=== PATIENT | male | born 1955 | race Caucasian/White ===

== ENCOUNTER 2025-06-15 15:51 | Outpatient (REF) | payer OTHER, SELFPAY ==
--- OUTSIDE RECORDS SUMMARY | 2025-06-01 14:20 | XMS_ITS | Encounter Summary ---
Author Organization [employer] Address [address], [place] [address] Care Team Providers Care Respiratory Care Instructor Name Role Phone No Primary/Referring, Phy Primary Care Provider Unavailable Reason for Visit * Reason Comments Refill Labs Needed Ppi monitoring Encounter Details Date Type Department Care Team (Latest Contact Info) Description 06/01/2025 2:20 PM CDT Office Visit Well at Work [facility] [address] [place] [address] Latasha Bose APRN, TERRA COTTA ROOFER HELPER [address] [place] [address] Encounter for medication refill (Primary Dx); Long-term current use of proton pump inhibitor therapy; Gastroesophageal reflux disease, unspecified whether esophagitis present; Hyperlipidemia, unspecified hyperlipidemia type (HRC) Social History Tobacco Use Types Packs/Day Years Used Date Smoking Tobacco: Never Passive Smoke Exposure: Never Smokeless Tobacco: Never Alcohol Use Standard Drinks/Week Comments Yes 0 (1 standard drink = 0.6 oz pur e alcohol) Occas PHQ-2 Answer Date Recorded PHQ-2 Score 0 08/12/2024 Sex and Gender Information Value Date Recorded Sex Assigned at Not on file Legal Sex Male 3:44 AM CDT Gender Identity Not on file Sexual Orientation Not on file documented as of this encounter Progress Notes * Latasha Bose APRN, SHANON - 06/01/2025 2:20 PM CDT Chief Complaint: Chief Complaint Patient presents with Refill Labs Needed Ppi monitoring Subjective HPI: Ortiz Quintana is a 69 y.o. old male who [facility] to [facility] for refill of medication from clinic stock. Pt has been taking their medications regularly and as prescribed. Denies any questions or concerns about the medication(s); denies any adverse reactions to the medications. Objective Physical Exam: There were no vitals taken for this visit. General: Well appearing. No acute distress. Pulm: Breathing easily on room air. Skin: No rashes on exposed areas of skin. Neuro: Alert. Normal speech. Assessment /PLAN 1. Encounter for medication refill 2. Long-term current use of proton pump inhibitor therapy - Magnesium; Future - Magnesium 3. Gastroesophageal reflux disease, unspecified whether esophagitis present - pantoprazole DR (PROTONIX) 20 MG tablet; Take 2 Tablets (40 mg) by mouth daily. Dispense: 180 Tablet; Refill: 0 4. Hyperlipidemia, unspecified hyperlipidemia type (HRC) - rosuvastatin (CRESTOR) 10 MG tablet; Take 2 Tablets (20 mg) by mouth daily. Dispense: 180 Tablet;Refill: 0 A 90 day supply of medications listed above were dispensed from clinic supply today. Serum Magnesium collected. Patient will review test results on OPS. Pt will return to the clinic for recheck/refill before current medication(s) are gone or sooner if needed. Follow up scheduled today. Patient verbalized understanding and agrees with plan. Latasha Bose APRN, SHANON documented in this encounter Plan of Treatment Upcoming Encounters Date Type Department Care Team (Late st Contact Info) Description 08/24/2025 2:20 PM SET UP OPERATOR Appointment Well at Work [facility] [address] [place], [place] [id number] Latasha Bose APRN, SHANON [address] [place] [address] documented as of this encounter Procedures Procedure Name Priority Date/Time Associated Diagnosis Comments MAGNESIUM Routine 06/01/2025 2:27 PM CDT Long-term current use of proton pump inhibitor therapy documented in this encounter Results * Magnesium (06/01/2025 2:27 PM CDT) Magnesium 2.1 1.6 - 2.6 mg/dL 06/01/2025 8:57 PM CDT [facility] Blood Venipuncture / Unknown 06/01/2025 2:27 PM CDT 06/01/2025 4:27 PM CDT us Latasha Bose STONE LAYER, TERRA COTTA ROOFER HELPER LAB_1 Final Resul t [facility] CLIA: [id number] [address] [place] [address] documented in this encounter Visit Diagnoses Diagnosis Encounter for medication refill- Primary Issue of repeat prescriptions Long-term current use of proton pump inhibitor therapy Gastroesophageal reflux disease, unspecified whether esophagitis present Hyperlipidemia, unspecified hyperlipidemia type (HRC) documented in this encounter Care Teams Respiratory Care Instructor Relationship Specialty Start Date End Date No Primary/Referring, Phy PCP - General 01/13/18 documented as of this encounter
--- OUTSIDE RECORDS SUMMARY | 2025-06-16 00:16 | XMS_ITS | Encounter Summary ---
Author Organization [employer] Address [address], [place] [address] Care Team Providers Care Elevating Grader Operator Name Role Phone No Primary/Referring, Phy Primary Care Provider Unavailable Encounter Details Date Type Department Care Team (Late Contact Info) Description 04/11/2025 Results Follow-Up [facility] [address] [place], [place] [phone] Gina Bryant PA-C [address] [place] [id number] Social History Tobacco Use Types Packs/Day Years [...] on file documented as of this encounter Plan of Treatment Upcoming Encounters Date Type Department Care Team (Late Contact Info) Description 08/24/2025 2:20 PM STRIPPING AND BOOKING MACHINE OPERATOR Appointment Well at Work Met [facility] [address] [place], [place] [address] Latasha Bose R, LANGUAGE INSTRUCTOR, LABORATORY VETERINARIAN [address], [place] [address] documented as of this encounter Visit Diagnoses Not on filedocumented in this encounter Care Teams Elevating Grader Operator Relationship Specialty Start Date End Date No Primary/Referring, Phy PCP - General 01/13/18 documented as of this encounter
--- OUTSIDE RECORDS SUMMARY | 2025-06-16 00:16 | XMS_ITS | Clinical Summary ---
Author Organization [facility] Address [address] [place] [address] Care Team Providers Care Security Software Engineer Name Role Phone No Primary/Referring, Phy Primary Care Provider Unavailable Source Comments You are receiving this document as you are listed as the primary care provider,follow-up provider, or the patient has been referred to you for consultation.This is in compliance with the Medicare and[facility] EHR Incentive Program,which states Providers who transition their patient to another setting of careor provider of care or refers their patient to another provider of care shouldprovide summary care record for each transition of care or referral. [employer] Allergies No known active allergies Medications Multiple Vitamins-Minerals (CENTRUM SILVER) Take by mouth. 9 Active ibuprofen (MOTRIN) 600 MG tabletIndications: Encounter for medication refill,S/P rotator cuff surgery Take 1 Tablet by mouth every 8 hours as needed for Pain. Take with food. 30 Tablet 1 Active Calcium Citrate-Vitamin D (CITRACAL + D OR) Ac tive Probiotic Product (PROBIOTIC DAILY OR) Active cetirizine (ZYRTEC) 10 MG tabletIndications: Nasal congestion Take 1 Tablet (10 mg) by mouth daily. 90 Tablet 1 4 Active Meloxicam (MOBIC) 15 MG tabletIndications: Pain of right heel Take 1 Tablet (15 mg) by mouth daily. 45 Tablet 5 4 Active MAGNESIUM GLYCINATE OR Take 400 mg by mouth daily at bedtime. Active levothyroxine (SYNTHROID) 137 MCG tabletIndications: Hypothyroidism, unspecified type (HRC) Take 1 Tablet (137 mcg) by mouth every morning. Wait 30-60 min before eating. 90 Tablet 1 5 04/26/[address] (PROTONIX) 20 MG tabletIndications: Gastroesophageal reflux disease, unspecified whether esophagitis present Take 2 Tablets (40 mg) by mouth daily. 180 Tablet 5 Active rosuvastatin (CRESTOR) 10 MG tabletIndications: Hyperlipidemia, unspecified hyperlipidemia type (HRC) Take 2 Tablets (20 mg) by mouth daily. 180 Tablet 5 06/01/20 26 Active rosuvastatin (CRESTOR) 10 MG tabletIndications: Hyperlipidemia, unspecified hyperlipidemia type (HRC),Encounter for medication refill Take 2 Tablets (20 mg) by mouth daily. 180 Tablet 5 06/01/20 25 Discontin ued(*Med change OR same med OR reorder, new dose/dire ctions) pantoprazole DR (PROTONIX) 20 MG tabletIndications: Gastroesophageal reflux disease, unspecified whether esophagitis present Take 2 Tablets (40 mg) by mouth daily for 45 days. 90 Tablet 5 06/01/20 25 Discontin ued(*Med change OR same med OR reorder, new dose/dire ctions) Active Problems Problem Noted Date Diagnosed Date High prostate specific antigen (PSA) 01/04/2022 History of prostate cancer 06/13/2021 Angiodysplasia of colon 03/27/2020 History of colonic polyps 03/23/2020 Primary malignant neoplasm of prostate 4 GERD (gastroesophageal reflux disease) 1 Hypothyroidism 01/02/2009 Resolved Problems Problem Noted Date Diagnosed Date Resolved Date Chronic shoulder pain 03/25/20182020 Encounters Date Type Department Care Team Description 06/02/2025 Results Follow-Up Well at Work Met [facility] [address] [place] [address] Gina Bryant PA-C 06/01/2025 2:20 PM CDT Office Visit Well at Work Met [facility] [address] [place] [address] Latasha Bose APRN, EMT I/99 Encounter for medication refill (Primary Dx); Long-term current use of proton pump inhibitor therapy; Gastroesophageal reflux disease, unspecified whether esophagitis present; Hyperlipidemia, unspecified hyperlipidemia type (HRC) 04/26/2025 10:20 AM CDT Office Visit Well at Work [facility] [address] [place] [address] Latasha Bose APRN, EMT I/99 Encounter for medication refill (Primary Dx); Gastroesophageal reflux disease, unspecified whether esophagitis present; Hypothyroidism, unspecified type (HRC) 04/11/2025 Results Follow-Up Well at Work [facility] [address] [place] [address] Gina Bryant PA-C 04/07/2025 9:40 AM CDT Office Visit Well at Work [facility] [address] [place] [address] Latasha Bose, RHONDA, EMT I/99 Hypothyroidism, unspecified type (HRC) (Primary Dx); Primary malignant neoplasm of prostate (HRC) from Last 3 Months Immunizations Immunization Administration Dates Next Due Adult RSV Abrysvo 08/25/2023 Flu Vac (3+ yrs) 07/28/2013, 2,08/09/2011,2009,08/01/2007,09/07/2004 Flu Vac Preserv Free (3+yrs) 07/04/2016,06/15/20 15 [id number] 01/09/2010 HepB Adult (Engerix-B, 20+ y rs, 3 dose series) 11/22/2008,05/16/2008,04/15/2008 Influenza (Flucelvax), Prese rv Free QIV 07/01/2017 Influenza [id number] 01/09/2010 Influenza IIV3 (Trivalent) F luzone Highdose, 65+ Yrs (78179) 07/15/2019 Influenza IIV4 (Quadrivalent ) 0.5mL (67324) 07/30/2018,07/04/2016,01/09/2010 Influenza IIV4 (Quadrivalent ) Fluad, 65+ Yrs 07/02/2023,07/02/2022,09/06/2021,2019 Moderna Monovalent 12+ 05/31/2022,2020,12/15/2020,2020 PCV13 (Prevnar) 07/16/2019 PCV20 (Gyjlpfw61) 07/12/2023 PPSV23 (Pneumovax) 10/03/2020 Td (7+ yrs) 04/13/2020 Tdap 01/09/2010 Zoster (Zostavax) 09/21/2015 Zoster RZV (Shingrix) 10/12/2019,07/29/2019 Family History Medical History Relation Name Comments Myocardial Infarction Father Dementia Mother Diabetes, Type II Mother Hypertension Mother Cancer, Other Brother Bone marrow Relation Name Status Comments Father (Age 73) of [place] Mother (Age 83) Brother Social History Tobacco Use Types Packs/Day Years Used Date Smoking Tobacco: Never Passive Smoke Exposure: Never Smokeless Tobacco: Never Tobacco Cessation:Counseling Given: Not Answered Alcohol Use Standard Drinks/Week Comments Yes 0 (1 standard drink = 0.6 oz pur e alcohol) Occas PHQ-2 Answer Date Recorded PHQ-2 Score 0 08/12/2024 Sex and Gender Information Value Date Recorded Sex Assigned at Not on file Legal Sex Male 3:44 AM CDT Gender Identity Not on file Sexual Orientation Not on file Last Filed Vital Signs Vital Sign Reading Time Taken Comments Blood Pressure 118/84 07/06/2024 11:42 AM CDT Pulse 56 07/06/2024 11:42 AM CDT Temperature 37.1 C (98.8 F) 04/02/2024 11:36 AM CDT Respiratory Rate 16 04/02/2024 11:36 AM CDT Oxygen Saturation 97% 04/12/2024 7:27 AM CDT Inhaled Oxygen Concentration - - Weight 86 kg (189 lb 9.6 oz) 04/13/2020 4:25 PM CDT Height 172.7 cm (5' 8) 04/13/2020 4:25 PM CDT Body Mass Index 28.83 04/13/2020 4:25 PM CDT Plan of Treatment Upcoming Encounters Date Type Department Care Team (Late st Contact Info) Description 08/24/2025 2:20 PM CHURCH SECRETARY Appointment Well at Work [facility] [address] [place] [address] Juice, Latasha R, FASHION MARKETER, EMT I/[address] [place] [address] Health Maintenance Due Date Last Done Comments Adult Preventive Visit 1973 Colonoscopy 03/23/2025 03/23/2020 (Comp leted), 10/31/2014 (Completed), 05/22/2007 COVID-19 Vaccine ( season) 2025 07/07/2024, 05/31/2022, 08/23/2021, Additional history exists Influenza Vaccine (#1) 2025 , 07/02/2023, 07/02/2022, Additional history exists Cholesterol 11/18/2029 11/18/2024, 10/2023, 03/20/2023, Additional history exists DTaP/Tdap/Td Vaccine (3 - Tdap) 04/13/2030 04/13/2020, 01/09/2010 HepB Vaccine Completed 11/22/2008, 05/06, 04/15/2008 Hep C Screening (Preventive Services) Completed 08/21/2015 (Completed) Zoster/Shingles Vaccine Completed 10/12/19, 07/29/2019, 09/21/2015 Pneumococcal Vaccine 50+ Yrs Completed 07/12/2023, 10/03/2020, 07/16/2019 RSV Vaccine Completed 08/25/2023 PSA Screening Discussion Discontinued 025, 04/04/2025, 10/04/2024, Additional history exists HepA Vaccine Aged Out No longer eligi ble based on patient's age to complete this topic Hib Vaccine Aged Out No longer eligi ble based on patient's age to complete this topic MCV4 Vaccine Aged Out No longer eligi ble based on patient's age to complete this topic Meningococcal B Vaccine Aged Out No l onger eligible based on patient's age to complete this topic Procedures Procedure Name Priority Date/Time Associated Diagnosis Comments MAGNESIUM Routine 06/01/2025 2:27 PM CDT Long-term current use of proton pump inhibitor therapy PROSTATIC SPECIFIC ANTIGEN(SCREEN) Routine 04/07/2025 9:45 AM CDT Primary malignant neoplasm of prostate (HRC) TSH, SENSITIVE (WITH REFLEX) Routine 04/07/2025 9:45 AM CDT Hypothyroidism, unspecified type (HRC) LIPID PANEL & DIRECT LDL (IF NEEDED) Routine 11/18/2024 2:23 PM CHURCH SECRETARY Routine adult health maintenance from Last 3 Months or Most Recently Relevant to Health Maintenance Results * Magnesium (06/01/2025 2:27 PM CDT) Magnesium 2.1 1.6 - 2.6 mg/dL 06/01/2025 8:57 PM CDT [facility] Blood Venipuncture / Unknown 06/01/2025 2:27 PM CDT 06/01/2025 4:27 PM CDT us Latasha Bose APRN, EMT I/99 LAB_1 Final Resul t [facility] CLIA: [id number] [address] [place] [address] * Prostatic Specific Antigen (Screen) (04/07/2025 9:45 AM CDT) Prostatic Specific Antigen 0.2 <=6.5 ng/mL 04/07/2025 6:46 PM CDT [facility] Comment:When the PSA value i s below the age-specific reference value but within 0.5 ng/mL, consider referral to urology. Blood Venipuncture / Unknown 04/07/2025 9:45 AM CDT 04/07/2025 9:45 AM CDT Narrative [facility] - 04/07/2025 6:46 PM CDT The Santiago PSA Chemiluminescent immunoassay is used. Results obtained with different test methods or kits cannot be used interchangeably. us Latasha R Juice FASHION MARKETER, EMT I/99 LAB_1 Final Resul t Performing Organization Address [facility] Co de Phone Number [facility] [address] * TSH with Free T4 (if TSH Abnormal) (04/07/2025 9:45 AM CDT) TSH, Reflex 0.74 0.30 - 4.50 uIU/mL 04/07/2025 6:46 PM CDT [facility] Blood Venipuncture / Unknown 04/07/2025 9:45 AM CDT 04/07/2025 9:45 AM CDT Latasha Bose APRN, SHANON LAB_1 Final Resul t Performing Organization Address [facility] de Phone Number [facility] [address] * Lipid Panel and Direct LDL(If Needed) (11/18/2024 2:23 PM CHURCH SECRETARY) Cholesterol 130 0 - 199 mg/dL 11/18/2024 6:36 PM CHURCH SECRETARY [facility] Triglyceride 96 <=149 mg/dL 11/18/2024 6:36 PM CHURCH SECRETARY [facility] HDL Cholesterol 45 >=40 mg/dL 11/18/2024 6:36 PM CHURCH SECRETARY [facility] LDL, Calculated 66 <130 mg/dL 11/18/2024 6:36 PM CHURCH SECRETARY [facility] Non HDL Chol, Calculated 85 <=159 mg/dL 11/18/2024 6:36 PM CHURCH SECRETARY [facility] Cholesterol/HDL Ratio 2.9 <=5.0 11/18/2024 6:36 PM CHURCH SECRETARY [facility] Hours Fasting 16.0 8 - 12 Hours 11/18/2024 6:36 PM [facility] Blood Venipuncture / Unknown 11/18/2024 2:23 PM CHURCH SECRETARY 11/18/2024 2:23 PM CHURCH SECRETARY Katalina Woods PA-C LAB_1 Final Result [facility] [address] [place] [address], [facility] from Last 3 Months or Most Recently Relevant to Health Maintenance Insurance [employer] SELF INSURED MEDICARE PART A SELF INSURED Care Teams Security Software Engineer Relationship Specialty Start Date End Date No Primary/Referring, Phy PCP - General 01/13/18
--- OUTSIDE RECORDS SUMMARY | 2025-06-16 00:16 | XMS_ITS | Clinical Summary ---
Author Organization [facility] Address [address] [place] [address] Care Team Providers Care Director Of Speech Pathology Name Role Phone Smith Starr MD Unavailable [phone] [facility], [employer] [facility] Unavailable [facility], [facility] Provide r Allergies No known active allergies Medications CENTRUM SILVER TAB take 1 tablet by oral route once daily 0 11/21/19 09 Active ibuprofen (ADVIL; MOTRIN) 600 mg tabletIndications: Routine general medical examination at a health care facility Take 1 tablet by mouth every 6 hours if needed. Maximum of 3200 mg in 24 hours. 180 tablet 1 01/09/20 18 Active Lactobacillus acidophilus (PROBIOTIC ORAL) Take 1 Tablet by mouth once daily if needed (with lactose containing food/beverages ). Active calcium citrate/vitamin D3 (CITRACAL + D ORAL) Take 1 Tablet by mouth once daily. Active vit C-vit T-cbbypx-wqcntkaf- omega (Ocuvite Adult 50 Plus) 250-5-1 mg Take 1 Capsule by mouth once daily. 0 07/04/20 21 Active pantoprazole (PROTONIX) 20 mg tablet Take 2 Tablets by mouth once daily. 05/22/20 21 Active levothyroxine (SYNTHROID) 125 mcg tablet Take 1 Tablet (125 mcg) by mouth before breakfast. 09/25/20 23 Active meloxicam 15 mg tablet Take 1 Tablet by mouth once daily. as needed 05/25/20 25 Active cetirizine (ZYRTEC) 10 mg tablet Take 10 mg by mouth once daily. 04/12/20 24 Active rosuvastatin (CRESTOR) 20 mg tabletIndications: Coronary artery calcification,Hype rlipidemia, unspecified hyperlipidemia type Take 1 Tablet (20 mg) by mouth at bedtime. 90 Tablet 3 06/09/20 25 Active cholecalciferol, Vitamin D3, 2,000 unit tablet Take 2,000 units by mouth once daily. 025 Discontin ued(*Domi ent states no longer taking) rosuvastatin (CRESTOR) 20 mg tabletIndications: Coronary artery calcification,Hype rlipidemia, unspecified hyperlipidemia type Take 1 Tablet (20 mg) by mouth at bedtime. 90 Tablet 3 09/25/20 23 025 Discontin ued(Reord er (E-cancel not sent)) Active Problems Problem Noted Date Diagnosed Date History of prostate cancer 06/13/2021 Hyponatremia 06/13/2021 Cellulitis of right groin 06/13/2021 GERD (gastroesophageal reflux disease) 1 Unspecified hypothyroidism 01/02/2009 Encounters Date Type Department Care Team Description 06/09/2025 2:30 PM CDT Office Visit [address] [place] [address] Geovanna Love MD CV General Cardiology Est (Yearly follow up. No symptoms or concerns.) 06/09/2025 Travel from Last 3 Months Immunizations Immunization Administration Dates Next Due Influenza A (H1N1), Inactivated (Age >=3 Years) 01/09/2010 Influenza, IIV3 (Age >=3 years) 08/18/2013,08/01 Influenza, IIV4 07/04/2016 Tdap 01/09/2010 Zoster (Zostavax-ZVL, live) 09/22/2015 Family History Medical History Relation Name Comments Cancer Brother 2 bone marrow can cer Diabetes Father Hypertension Mother Anesthesia Problem No Family History Cancer-breast No Family History Cancer-ovarian No Family History Relation Name Status Comments Brother 1 Alive x3 Brother 2 Father (Age 73) Mother (Age 83) Sister Alive Social History Tobacco Use Types Packs/Day Years Used Date Smoking Tobacco: Never Smokeless Tobacco: Never Alcohol Use Standard Drinks/Week Comments Yes 0 (1 standard drink = 0.6 oz pur e alcohol) Rare PHQ-2 Answer Date Recorded PHQ-2 Score 0 12/07/2018 Social Connections Answer Date Recorded Frequency of Communication with Friends and Fami ly Not on file 10/06/2021 Financial Resource Strain Answer Date R ecorded Difficulty of Paying Living Expenses Not on file 10/06/2021 Difficulty of Paying Living Expenses Not on file 10/06/2021 Sex and Gender Information Value Date Recorded Sex Assigned at Not on file Legal 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 Gender Identity Not on file Sexual Orientation Not on file 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 file Not on file Not on file Obstetrics History Last Filed Vital Signs Vital Sign Reading Time Taken Comments Blood Pressure 116/74 06/09/2025 2:48 PM CDT Pulse 59 06/09/2025 2:48 PM CDT Temperature 37.4 C (99.3 F) 06/27/2022 7:27 PM CDT Respiratory Rate 16 06/27/2022 7:27 PM CDT Oxygen Saturation 97% 06/09/2025 2:48 PM CDT Inhaled Oxygen Concentration - - Weight 87.5 kg (193 lb) 06/09/2025 2:48 PM CDT Height 172.7 cm (5' 8) 06/09/2025 2:48 PM CDT Body Mass Index 29.35 06/09/2025 2:48 PM CDT Plan of Treatment Health Maintenance Due Date Last Done Comments Pneumococcal series for age 50+ (1 of 2 - PCV) 1972 RSV vaccine for adults or (1 - Risk 60-74 years 1-dose series) 2013 Zoster (shingles) series for age 50+ (2 of 3) 11/17/2015 09/22/2015 Depression screening for age 12+ 01/08/2019 01/08/2018, 12/13/2016 Tetanus booster 01/10/2020 01/09/2010 Lipids for age 45-75 01/08/2023 01/08/2018, 12/13/2016, 08/21/2015, Additional history exists COVID-19 vaccine series ( season) 2025 05/31/2022, 08/23/2021, 12/15/2020 Influenza Vaccine (#1) 2025 6, 08/18/2013, 08/01/2007 BMI (ht and wt on same day) for age 18+ 06/09/2026 06/09/2025, 09/25/2023, 06/27/2022, Additional history exists Colonoscopy through age 75 03/23/203003/23, 10/31/2014, 05/22/2007, Additional history exists Hepatitis C screening for age 18-79 Completed 08/21/2015 Hepatitis B series for 19+ Aged Out N o longer eligible based on patient's age to complete this topic Procedures Procedure Name Priority Date/Time Associated Diagnosis Comments SCAN-COLONOSCOPY 03/23/2020 8:30 AM CDT LIPID PANEL W REFLEX MEASURED LDL Routine 01/08/2018 12:00 PM CDT Routine general medical examination at a health care facility ANTI HCV Routine 08/21/2015 4:07 PM TERMINAL SYSTEM OPERATOR Physical exam from Last 3 Months or Most Recently Relevant to Health Maintenance Results * SCAN-COLONOSCOPY (03/23/2020 8:30 AM CDT) Narrative Procedure Note José Miguel Chiang MD - 03/23/2020 7:54 AM CDT [facility] [address] [place] [address], [address], [place] [address] Patient Name: Frank Quintana Gender: Male Exam Date: 03/23/2020 Visit Number: [id number] Age: 64 Years 6 Months Date of : 1955 Attending MD: José Miguel Chiang MD Medical Record#: [id number] ----- Procedure: Colonoscopy Indications: Rectal bleeding Follow up adenomatous polyp(s) Referring MD: Rupesh Perez MD Primary MD: MD Aguila Primary Medications: Admitting Medications: 0.9% Normal Saline at TKO Intra Procedure Medications: Patient received monitored anesthesia care. Complications: No immediate complications Procedure: An examination of the heart and lungs was performed and found to be withinacceptable limits. The patient was therefore deemed a reasonablecandidate for endoscopy and monitored anesthesia care. The risks and benefits of the procedure were explained to the patient.After obtaining informed consent, the patient received monitoredanesthesia care and I passed the scope without difficulty via the rectum to the cecum. The appendiceal orificeand ic valve were identified. The scope was retroflexed during theexamination The quality of the prep was good (Miralax/Gatorade/2 tabletsBisacodyl/Magnesium Citrate). This was a complete examination throughout the entire colon. Findings: Angioectasia. Multiple angioectasias in the rectum, consistent withradiation related proctitis. Maneuver - APC. Remainder of the exam is normal. Impression: Radiation proctitis Personal history of colonic polyps Exam otherwise normal Plan: Repeat colonoscopy in 5 years. We will attempt to contact you at appropriate intervals via [place]. mail. Wemay not be able to find you or contact you at that time, therefore youshould know that the responsibility for following our recommendation restswith you. If you don't hear from us at the time your procedure is due,please contact our office to schedule an appointment. If your contactinformation should change, please contact our office so that we can updateyour records. Electronically signed by: José Miguel Chiang MD 03/23/2020 Medications: Medication Dose Sig Description PRN Status PRN Reason Comments Aspirin Low Dose 81 mg Tab, Delayed Release 81 mg Take one tablet by mouthdaily N taking as directed Calcium 600 + D(3) 600 mg calcium-200 unit capsule 600 mg calcium-200 unittake 2 Tablet by Oral route every day N taking as directed Centrum Silver 0.4 mg-300 mcg-250 mcg tablet 0.4 mg-300 mcg-250 mcg take 1by Oral route every day N taking as directed levothyroxine 112 mcg tablet 112 mcg take 1 tablet by oral route everyday N taking as directed pantoprazole 40 mg tablet,delayed release 40 mg take 1 by Oral routeevery day N taking as directed Vitamin D3 2,000 unit tablet 50 mcg (2,000 unit) take 1 by Oral routeevery day N taking as directed Allergies: Medication Name Ingredient Reaction Comment NO KNOWN ALLERGIES Vital Signs: Date Time Systolic Diastolic Height Weight BMI 03/23/2020 815 AM 125 75 68 in 188.59 28.70 Race: Ethnicity: Not or Preferred Language: [place]se cc: No Primary cc: Rupesh Perez MD cc: Gregg Vazquez MD [facility] [phone] José Miguel Chiang MD OTHER Final R esult * (ABNORMAL) LIPID PANEL W REFLEX MEASURED LDL (01/08/2018 12:00 PM CDT) CHOLESTEROL,TOTAL 229(H) 100 - 199 mg/dL 01/08/2018 7:55 PM T [facility] TRIGLYCERIDES 187(H) <150 mg/dL 01/08/2018 7:55 PM T [facility] HDL CHOLESTEROL 44 >40 mg/dL 8 7:55 PM T [facility] NON-HDL CHOLESTEROL 185(H) <145 mg/dl 01/08/2018 7:55 PM [facility] CHOL/HDL RATIO 5.20(H) <4.50 01/08/2018 7:55 PM T [facility] LDL CHOLESTEROL 148(H) <=130 mg/dL 01/08/2018 7:55 PM [facility] PROVIDER ORDERED STATUS RANDOM 01/08/2018 7:55 PM CDT [facility] Blood BLOOD SPECIMEN / Unknown Venipuncture / Unknown 01/08/2018 12:00 PM CDT 01/08/2018 12:00 PM CDT Rupesh Perez MD CHEMISTRY Final Resu lt [facility] [address] [place] [address], * ANTI HCV (08/21/2015 4:07 PM TERMINAL SYSTEM OPERATOR) HEPATITIS C ANTIBODY Non-Reacti ve Non-Reacti ve 08/21/2015 9:01 PM TERMINAL SYSTEM OPERATOR [facility] Blood specimen (specimen) BLOOD SPECIMEN / Unknown Venipuncture / Unknown 08/21/2015 4:07 PM TERMINAL SYSTEM OPERATOR 08/21/2015 4:07 PM TERMINAL SYSTEM OPERATOR Narrative [facility] - 08/21/2015 9:01 PM TERMINAL SYSTEM OPERATOR Antibodies to HCV not detected; does not exclude the possibility of exposure to HCV. Rupesh Perez MD SEND OUTS Final Resu lt [facility] [address] [place] [address], from Last 3 Months or Most Recently Relevant to Health Maintenance Insurance DIST[employer] [place] [id number] Advance Directives * Full Code (Latest Code Status on File) Date Activated Date Inactivated Comments 06/13/2021 5:45 AM 06/16/2021 2:37 PM Question Answer Comments Code Status Discussion: Per Existing Order * Full Code Date Activated Date Inactivated Comments 12/17/2013 11:01 AM 12/19/2013 1:04 AM Care Teams Director Of Speech Pathology Relationship Specialty Start Date End Date [place] [address] [place] [address] PCP - General 06/13/21 Smith Starr MD Endocrinology Endocrinology 09/22/12 [facility] [address] [place] [address] 06/13/21
--- OUTSIDE RECORDS SUMMARY | 2025-06-16 00:16 | XMS_ITS | Encounter Summary ---
Author Organization [facility] Address [address], [place] [address] Care Team Providers Care Harness Cleaner Name Role Phone No Primary/Referring, Phy Primary Care Provider Unavailable Encounter Details Date Type Department Care Team (Late Contact Info) Description 06/02/2025 Results Follow-Up Well at Work Met [facility] [address] [place], [place] [id number] Gina Bryant PA-C [address] [place] [id number] Social History Tobacco Use Types Packs/Day [...] (Late Contact Info) Description 08/24/2025 2:20 PM CORRECTIONAL PROBATION OFFICER Appointment Well at Work Met [facility] [address] [place], [place] [address] Latasha Bose R, BRICKMASON HELPER, [employer] [address], [place] [address] documented as of this encounter Visit Diagnoses Not on filedocumented in this encounter Care Teams Harness Cleaner Relationship Specialty Start Date End Date No Primary/Referring, Phy PCP - General 01/13/18 documented as of this encounter
== END 2025-06-15 15:52 | disposition home or self-care (01) ==
LOC: NPINS 15:51
DX: Z76.89 Persons encountering health services in other specified circumstances (principal)